=== PATIENT | male | born 1955 | race Caucasian/White ===

== ENCOUNTER 2019-07-26 10:45 | Outpatient (RCR) | payer MEDICARE, SELFPAY ==
--- NOTE | 2019-07-26 12:01 | PTOPEVAL ---
PHYSICAL THERAPY EVALUATION AND PLAN OF CARE 07-26-2019 The PT evaluation was completed and the plan of treatment is 1x/week for 3 weeks. Thank you for referring Ankit to [facility]. Please review, sign, date and return this plan of care [facility]. I agree with and certify that the following plan of care is medically necessary. Referring Physician Date Attending Provider: Júnior Maciel MD *PT Outpatient Evaluation Start: 07/26/19 10:59 Document 07/26/19 10:55 FELICITAS (Rec: 07/26/19 12:01 FELICITAS [id number]) Outpatient Past Medical History Neurological History Hx Neurological Disorders No Significant History Cardiovascular History Hx Cardiac Disorders No Significant History Respiratory History Hx Respiratory Disorders No Significant History Gastrointestinal History Hx Gastrointestinal Disorders No Significant History Genitourinary History Hx Genitourinary Disorders No Significant History Musculoskeletal History Hx Orthopedic Surgery Yes: R Knee arthroscopy; L knee injection,arthritis Hx Other Musculoskeletal Disorders Yes: leg cramps-when hot and incr sweating Endocrine History Hx Endocrine Disorders No Significant History Evaluation Information Problem Diagnosis lumbar pain, radicular into L LE Onset about one year ago Subjective Information about one year ago, L knee Query Text:As Reported By Patient/ pain increased and swollen, Family kept going- knee pain and then back pain started increasing, and into side of thigh; was walking funny and L leg turned out due to knee pain; back pain is less than it was; recent x ray of L knee negative- received injection and knee pain decreased; use inversion table for back pain about 5x/week for stretch back and when back pain worse will do more than once/day; it helps back pain; have had inversion table for about 30 years; Previous Treatments Previous Treatments For This Problem no previous PT for LBP Prior Level of Function Activity Level (Last 3 Months) Occupation retired Activity of Daily Living Ability Independent Indoor/Home Mobility Independent Community Mobility Independent Stairs Ability Independent Functional Cognition (Planning, Shopping Independent , Taking Medications) Yasir
--- NOTE | 2019-08-09 10:26 | PCPTNOTE ---
Patient called & cancelled scheduled appointment this date due to the COVID-19 virus.
--- NOTE | 2019-09-04 14:54 | PCPTNOTE ---
PHYSICAL THERAPY DISCHARGE 09-04-2019 Attending Provider: Júnior Maciel MD Patient:Ankit Nath Date of :1955 Mr. Ntah had the PT evaluation on 07-26-2019, then canceled PT due to the COVID 19. Therefore he will be discharge from PT at this time. The goals were not assessed. Thank you for referring Ankit to [facility]. Please review, sign, date and return this discharge summary KEN. I have been updated about the patient's current status and I agree with discharge from the above service at this time. Referring Physician Date
== END 2019-09-05 13:44 | disposition home or self-care (01) ==
LOC: ANHPT 10:45
PROVIDERS: Visit Provider Orthopaedic Surgery
DX: M54.5 Low back pain (principal); M79.605 Pain in left leg
CPT/HCPCS: 97161

== ENCOUNTER 2020-08-07 11:32 | Outpatient (CLI) | payer MEDICARE, SELFPAY | END 2020-08-07 11:33 | disposition home or self-care (01) | LOC: ANHCOVIDVC 11:32 | DX: Z23 Encounter for immunization (principal) | CPT/HCPCS: 0001A; 91300 ==

== ENCOUNTER 2020-08-28 11:31 | Outpatient (CLI) | payer MEDICARE, SELFPAY | END 2020-08-28 11:32 | disposition home or self-care (01) | LOC: ANHCOVIDVC 11:31 | DX: Z23 Encounter for immunization (principal) | CPT/HCPCS: 0002A; 91300 ==